=== PATIENT | female | born 2000 | race Caucasian/White ===

== ENCOUNTER 2021-12-09 20:42 | Emergency (ER) | payer OTHER ==
[~2021-12-09] VITALS: Ht 172.7 cm; Wt 77.3 kg
[2021-12-09 20:42] VITALS: BP 122/71
== END 2021-12-09 22:33 | disposition home or self-care (01) ==
LOC: M ED 20:42
DX: S93.401A Sprain of unspecified ligament of right ankle, initial encounter (principal); X50.0XXA Overexertion from strenuous movement or load, initial encounter; Y92.218 Other school as the place of occurrence of the external cause; Z88.0 Allergy status to penicillin; Z91.040 Latex allergy status